=== PATIENT | female | born 1995 | race Caucasian/White ===

== ENCOUNTER 2018-01-11 16:55 | Emergency (ER) | payer OTHER ==
[2018-01-11 17:16] VITALS: TEMP 96.9
[2018-01-11 18:30] VITALS: BP 119/77; PULSE 93; RESP 16; O2SAT 99
== END 2018-01-11 18:15 | disposition home or self-care (01) | DRG 563 ==
LOC: ED 16:55
DX: S46.912A Strain of unspecified muscle, fascia and tendon at shoulder and upper arm level, left arm, initial encounter (principal)
CPT/HCPCS: 99283